=== PATIENT | male | born 1985 | race Caucasian/White ===

== ENCOUNTER 2016-05-01 20:05 | Emergency (ER) | payer OTHER ==
[~2016-05-01] VITALS: Ht 172.7 cm; Wt 91.0 kg
[~2016-05-01 20:05] MED LIST: BAC30OI TOP; BACTDS PO; CEPH-443 PO; IBUP200C11 PO; NAPR-260 PO
[2016-05-01 20:33] VITALS: Ht 172.7 cm; Wt 91.0 kg
[2016-05-01] MEDS ORDERED: IBUPROFEN 600 MG TAB PO ONE (22:30)
[2016-05-01] MEDS ORDERED: LIDOCAINE 1% (MDV) 20 ML INJ SC ONE (22:30)
--- NOTE | 2016-05-01 22:34 | ERD ---
ER Documentation Chief Complaint Date/Time DATE: 05/01/16 TIME: 22:32 Chief Complaint abscess since Friday HPI 30-year-old male presents in emergency department for complaints of redness and swelling in the neck area started 5 days ago. Patient described the pain as sharp pain, 8/10 scale, is worse upon touching the area, patient denies any open wound, patient denies any discharge coming from the area. Patient has a history of abscess in the same area before. Patient states that it feels the same way. ROS All systems reviewed and are negative except as per history of present illness. Medications Home Meds Active Scripts Ibuprofen* (Motrin*) 600 Mg Tab, 600 MG PO Q6H Y for PAIN AND OR ELEVATED TEMP, #30 TAB Prov:BIN CHAKRABORTY DISTRIBUTION TECH 05/01/16 Cephalexin* (Keflex*) 500 Mg Capsule, 500 MG PO QID for 10 Days, CAP Prov:BIN CHAKRABORTY DISTRIBUTION TECH 05/01/16 Sulfamethoxazole-Trimethoprim* (Bactrim* DS) 800-160 Mg Tab, 1 TAB PO BID for 10 Days, TAB Prov:BIN CHAKRABORTY DISTRIBUTION TECH 05/01/16 Hydrocodone/Acetaminophen ([place] 5-325 Tablet) 1 Each Tablet, 1 TAB PO Q6H, #20 TAB Prov:BIN CHAKRABORTY DISTRIBUTION TECH 05/01/16 Naproxen* (Naprosyn*) 500 Mg Tablet, 500 MG PO BID Y for PAIN AND/OR INFLAMMATION, #20 TAB Prov:Dasha Juarez PA-C 01/24/16 Bacitracin* (Bacitracin Zinc Oint*) 28.35 Gm Oint, 1 APPLIC TOP BID, #1 TUB APPLI TO Prov:Dasha Juarez-C 01/24/16 Sulfamethoxazole-Trimethoprim* (Bactrim* DS) 800-160 Mg Tab, 1 TAB PO BID for 5 Days, TAB Prov:Dasha JuarezC 01/24/16 Cephalexin* (Keflex*) 500 Mg Capsule, 500 MG PO QID for 5 Days, CAP Prov:Dasha Juarez-C 01/24/16 Reported Medications Ibuprofen* (Advil*) 200 Mg Capsule, 200 MG PO Y for HEADACHE, CAP 07/08/13 Allergies Allergies: Coded Allergies: No Known Allergy (Unverified , 07/08/13) PMhx/Soc Medical and Surgical Hx: pt denies Medical Hx, pt denies Surgical Hx History of Surgery: No Anesthesia Reaction: No Hx Neurological Disorder: No Hx Respiratory Disorders: No Hx Cardiac Disorders: No Hx Psychiatric Problems: No Hx Miscellaneous Medical Probl: No Hx Alcohol Use: No Hx Substance Use: No Hx Tobacco Use: Yes Smoking Status: Never smoker FmHx Family History: No coronary disease, No diabetes, No other Physical Exam Vitals Vital Signs Date Time Temp Pulse Resp B/P Pulse Ox O2 Delivery O2 Flow Rate FiO2 05/02/16 00:02 98.6 71 18 126/78 99 Room Air 05/01/16 20:33 100.3 105 18 150/82 99 Physical Exam GENERAL: The patient is well developed and appropriate for usual state of health, in no apparent distress. CHEST: Clear to auscultation bilaterally. There are no rales, wheezes or rhonchi. HEART: Regular rate and rhythm. No murmurs, clicks, rubs or gallops. No S3 or S4. ABDOMEN: Soft, nontender and nondistended. Good bowel sounds. No rebound or guarding. No gross peritonitis. No gross organomegaly or masses. No Pacheco sign or McBurney point tenderness. BACK: No midline or flank tenderness. EXTREMITIES: Equal pulses bilaterally. There is no peripheral clubbing, cyanosis or edema. No focal swelling or erythema. Full range of motion. Grossly neurovascularly intact. NEURO: Alert and oriented. Cranial nerves 2-12 intact. Motor strength in all 4 extremities with 5/5 strength. Sensation grossly intact. Normal speech and gait. SKIN: Noted 3 cm diameter erythematous fluctuant area and the neck area, tender on palpation, erythematous. warm to touch. There is no apparent ecchymosis or petechia. HEMATOLOGIC AND LYMPHATIC: There is no evidence of excessive bruising or lymphedema. No gross cervical, axillary, or inguinal lymphadenopathy. Results 24 hrs Current Medications Medications (Trade) Dose Ordered Sig/Zhane Route PRN Reason Start Time Stop Time Status Last Admin Dose Admin Ibuprofen (Motrin) 600 mg ONCE ONCE PO 05/01/16 22:30 05/01/16 22:31 DC 05/01/16 22:42 Lidocaine (Xylocaine 1% (Mdv) 20 ml) 3 ml ONCE ONCE SC 05/01/16 22:30 05/01/16 22:31 DC Patient was given medication for pain here in emergency department, after treatment, patient verbalized feeling much better. Patient's pain is improved. Procedures/MDM Procedure Note: After obtaining informed consent, the wound was irrigated with 250 ml of normal saline and cleaned with diluted betadine. Using aseptic technique, 3 ml of 1% lidocaine was injected on the subcutaneous tissue of the abscess where the fluctuant area is at. After the anesthetic, a 2 cm incision was done in the middle of the fluctuant area of the abscess. Pustular discharge was drained from the abscess. The abscess wound was loosely packed with iodoform dressing. After the procedure, dry dressing was applied on the area. Patient tolerated procedure well. Medical decision making: Patient's symptoms most likely consistent with a soft tissue abscess, incision and drainage was done, patient tolerated procedure well. No symptoms of any neurovascular compromise. No symptoms of sepsis at this time, patient has fever but is controlled at this time. Patient appears well and is hemodynamically stable. No symptoms of any neurovascular compromise. No symptoms of any joint involvement, osteomyelitis. Prescription was given for clindamycin, is advised to take medications as prescribed, recheck in 3 days, and dressing change. Patient is advised to return to emergency department for any worsening symptoms. Prescription was given for Bactrim Keflex ibuprofen and [place]. Departure Diagnosis: Primary Impression: Soft tissue abscess Condition: Stable Patient Instructions: Abscess, Incision And Drainage BIN CHAKRABORTY NP May 01, 2016 22:34
[2016-05-01] MEDS ORDERED: CEPH-443 PO (23:23)
[2016-05-01] MEDS ORDERED: HYDR-906 PO (23:23)
[2016-05-01] MEDS ORDERED: IBUP-1542 PO (23:23)
[2016-05-01] MEDS ORDERED: BACTDS PO (23:23)
[2016-05-02 00:02] VITALS: BP 126/78; PULSE 71; RESP 18; TEMP 98.6
== END 2016-05-02 00:26 | disposition home or self-care (01) ==
LOC: FTE 20:05
DX: L02.11 Cutaneous abscess of neck (principal); Z87.891 Personal history of nicotine dependence
CPT/HCPCS: 10061; Z7502; Z7610

== ENCOUNTER 2016-11-14 11:22 | Emergency (ER) | payer OTHER ==
[~2016-11-14] VITALS: Ht 165.1 cm; Wt 74.0 kg
[~2016-11-14 11:22] MED LIST changes: -BAC30OI TOP; +BACI28.34 TOP; +HYDR-906 PO; +IBUP-1542 PO
[2016-11-14 11:55] VITALS: Ht 165.1 cm; Wt 74.0 kg
[2016-11-14] MEDS ORDERED: LIDOCAINE 1% (MDV) 20 ML INJ SC ONE (12:30)
[2016-11-14] MEDS ORDERED: IBUPROFEN 600 MG TAB PO ONE (12:30)
[2016-11-14] MEDS ORDERED: DOXY100T20 PO (12:43)
--- NOTE | 2016-11-14 13:33 | ERD ---
ER Documentation Chief Complaint Date/Time DATE: 11/14/16 TIME: 13:29 Chief Complaint abscess on neck HPI This patient is a 31-year-old male with past medical history of folliculitis and abscesses on his neck presenting to the emergency department with complaints of an abscess to the posterior neck which has been present for the past 2 days. He reports pain which is constant, worse with movement, sharp in nature. He has had similar symptoms in the past and an abscess in the same area which required incision and drainage. The patient denies history of IV drug use. He denies discharge, fevers, or other symptoms at this time. ROS All systems reviewed and are negative except as per history of present illness. Medications Home Meds Active Scripts Doxycycline Hyclate* (Doxycycline Hyclate*) 100 Mg Tablet.dr, 100 MG PO BID for 10 Days, #20 TAB Prov:NATALY WOLF PA-C 11/14/16 Ibuprofen* (Motrin*) 600 Mg Tab, 600 MG PO Q6H Y for PAIN AND OR ELEVATED TEMP, #30 TAB Prov:BIN CHAKRABORTY NP 05/01/16 Cephalexin* (Keflex*) 500 Mg Capsule, 500 MG PO QID for 10 Days, CAP Prov:BIN CHAKRABORTY NP 05/01/16 Sulfamethoxazole-Trimethoprim* (Bactrim* DS) 800-160 Mg Tab, 1 TAB PO BID for 10 Days, TAB Prov:BIN CHAKRABORTY NP 05/01/16 Hydrocodone/Acetaminophen ([place] 5-325 Tablet) 1 Each Tablet, 1 TAB PO Q6H, #20 TAB Prov:BIN CHAKRABORTY NP 05/01/16 Naproxen* (Naprosyn*) 500 Mg Tablet, 500 MG PO BID Y for PAIN AND/OR INFLAMMATION, #20 TAB Prov:Dasha Juarez PA-C 01/24/16 Bacitracin* (Bacitracin Zinc Oint*) 28.35 Gm Oint, 1 APPLIC TOP BID, #1 TUB APPLI TO Prov:Dasha Juarez PA-C 01/24/16 Sulfamethoxazole-Trimethoprim* (Bactrim* DS) 800-160 Mg Tab, 1 TAB PO BID for 5 Days, TAB Prov:Dasha Juarez PA-C 01/24/16 Cephalexin* (Keflex*) 500 Mg Capsule, 500 MG PO QID for 5 Days, CAP Prov:LarryDasha PEREA 01/24/16 Reported Medications Ibuprofen* (Advil*) 200 Mg Capsule, 200 MG PO Y for HEADACHE, CAP 07/08/13 Allergies Allergies: Coded Allergies: No Known Allergy (Unverified , 07/08/13) PMhx/Soc Medical and Surgical Hx: pt denies Medical Hx, pt denies Surgical Hx History of Surgery: No Anesthesia Reaction: No Hx Neurological Disorder: No Hx Respiratory Disorders: No Hx Cardiac Disorders: No Hx Psychiatric Problems: No Hx Miscellaneous Medical Probl: No Hx Alcohol Use: No Hx Substance Use: No Hx Tobacco Use: Yes Smoking Status: Current every day smoker Physical Exam Vitals Vital Signs Date Time Temp Pulse Resp B/P Pulse Ox O2 Delivery O2 Flow Rate FiO2 11/14/16 11:55 98.7 95 20 129/59 100 Physical Exam Const: Nontoxic, well-appearing male in no acute distress. Head: Atraumatic Eyes: Normal Conjunctiva ENT: Normal External Ears, Nose and Mouth. Neck: Full range of motion..~ No meningismus.There is an approximate 2 cm x 2 cm fluctuant abscess noted with a central pustule to the posterior left lateral neck. No significant surrounding erythema or other signs of significant cellulitis were noted. Skin: There is an approximate 2 cm x 2 cm fluctuant abscess noted with a central pustule to the posterior left lateral neck. No significant surrounding erythema or other signs of significant cellulitis were noted. Back: No midline or flank tenderness Ext: No cyanosis, or edema Neur: Awake and alert Psych: Normal Mood and Affect Results 24 hrs Current Medications Medications (Trade) Dose Ordered Sig/Zhane Route PRN Reason Start Time Stop Time Status Last Admin Dose Admin Lidocaine (Xylocaine 1% (Mdv) 20 ml) 20 ml ONCE ONCE SC 11/14/16 12:30 11/14/16 12:31 DC Ibuprofen (Motrin) 600 mg ONCE ONCE PO 11/14/16 12:30 11/14/16 12:31 DC 11/14/16 12:12 Procedures/MDM 31-year-old male presents to the emergency department with complaints of abscess to the back of the neck. Abscess was incised and drained after verbal consent was obtained. The patient tolerated the procedure well. It was left open to drain. He is to return in 48 hours for wound recheck. He was given prescription for doxycycline and was advised to follow-up with his primary care physician and dermatology if symptoms do not improve. Strict ER return precautions were discussed. Abscess Incision and Drainage with irrigation by me: Location: Posterior left lateral neck Anesthesia: Local 1% Lidocaine Technique: Irrigated. Disrupted loculations w/ instrumentation Packing: None Complications: Neurovascularly intact post procedure 48 hour wound check. Scar minimization instructions given. Patient's skin symptoms have stabilized while they have been evaluated in the department and are appropriate for outpatient care and work up. Exam and w/u not consistent w/ sepsis, deep space infection, or foreign body. Departure Diagnosis: Primary Impression: Abscess Additional Impression: Folliculitis Condition: Fair Patient Instructions: Abscess, Incision And Drainage Referrals: [facility] YOU HAVE RECEIVED A MEDICAL SCREENING EXAM AND THE RESULTS INDICATE THAT YOU DO NOT HAVE A CONDITION THAT REQUIRES URGENT TREATMENT IN THE EMERGENCY DEPARTMENT. FURTHER EVALUATION AND TREATMENT OF YOUR CONDITION CAN WAIT UNTIL YOU ARE SEEN IN YOUR DOCTORS OFFICE WITHIN THE NEXT 1-2 DAYS. IT IS YOUR RESPONSIBILITY TO MAKE AN APPOINTMENT FOR FOL-UP CARE. IF YOU HAVE A PRIMARY DOCTOR --you should call your primary doctor and schedule an appointment IF YOU DO NOT HAVE A PRIMARY DOCTOR YOU CAN CALL OUR PHYSICIAN REFERRAL HOTLINE AT IF YOU CAN NOT AFFORD TO SEE A PHYSICIAN YOU CAN CHOSE FROM THE FOLLOWING [facility] [address]. [facility] [address] [facility] [facility] [address] [facility] [facility] [facility] [address] [facility] [facility] [address] [facility]. [facility]. [address] Additional Instructions: Follow up with your PCP within the next 1-3 days for a repeat evaluation. If you require a referral to a specialist, your Primary Care Provider may be able to provide this for you. In most patient cases, a referral is not required. If you have further questions regarding this matter, please ask your Primary Care Provider. Return the the emergency department immediately if symptoms worsen or change. If you have any questions regarding medications, ask your pharmacist or us before you leave. If any adverse reactions, occur while taking your medications, discontinue the treatment and return to the emergency department immediately. If any new or worsening symptoms, uncontrolled fevers, or other unexplained symptoms occur, return to the emergency department immediately. Take your medications as directed, and complete the entire course of treatment. NATALY WOLF PA-C Nov 14, 2016 13:33
== END 2016-11-14 13:05 | disposition home or self-care (01) ==
LOC: FTE 11:22
DX: L02.11 Cutaneous abscess of neck (principal); L73.9 Follicular disorder, unspecified; F17.210 Nicotine dependence, cigarettes, uncomplicated
CPT/HCPCS: 10060; Z7502; Z7610

== ENCOUNTER 2017-02-11 16:45 | Emergency (ER) | payer OTHER ==
[~2017-02-11] VITALS: Ht 172.7 cm; Wt 96.0 kg
[~2017-02-11 16:45] MED LIST changes: +DOXY100T20 PO
[2017-02-11 16:50] VITALS: Ht 172.7 cm; Wt 96.0 kg
[2017-02-11] MEDS ORDERED: LIDOCAINE 1% (MDV) 20 ML INJ SC ONE (18:30)
[2017-02-11] MEDS ORDERED: MUPI22OI2 NASAL (19:11)
[2017-02-11] MEDS ORDERED: SULF1TAB31 PO (19:11)
[2017-02-11] MEDS ORDERED: CEPH-443 PO (19:11)
[2017-02-11 19:18] VITALS: BP 145/73; PULSE 64; RESP 18; TEMP 98.3
--- NOTE | 2017-02-11 19:23 | ERD ---
ER Documentation Chief Complaint Chief Complaint abcess on neck x 3 days HPI 31-year-old male with history of recurrent cellulitis and abscess on his neck return to ED for another episode. Patient stated that this was not started about 3 days ago, with increasing pain. Denies fever or chills. Denies injury. Denies drainage. ROS All systems reviewed and are negative except as per history of present illness. Medications Home Meds Active Scripts Mupirocin* (Bactroban*) 2% -22 Gram Oint...g., 1 APPLIC NASAL BID for 14 Days, EA Prov:MATT LOW NP 02/11/17 Cephalexin* (Keflex*) 500 Mg Capsule, 500 MG PO QID for 7 Days, CAP Prov:MATT LOW NP 02/11/17 Sulfamethoxazole/Trimethoprim* (Bactrim Ds* Tablet) 1 Each Tablet, 1 TAB PO BID for 7 Days, TAB Prov:MATT LOW NP 02/11/17 Doxycycline Hyclate* (Doxycycline Hyclate*) 100 Mg Tablet.dr, 100 MG PO BID for 10 Days, #20 TAB Prov:NATALY WOLFC 11/14/16 Ibuprofen* (Motrin*) 600 Mg Tab, 600 MG PO Q6H Y for PAIN AND OR ELEVATED TEMP, #30 TAB Prov:BIN CHAKRABORTY NP 05/01/16 Cephalexin* (Keflex*) 500 Mg Capsule, 500 MG PO QID for 10 Days, CAP Prov:BIN CHAKRABORTY NP 05/01/16 Sulfamethoxazole-Trimethoprim* (Bactrim* DS) 800-160 Mg Tab, 1 TAB PO BID for 10 Days, TAB Prov:BIN CHAKRABORTY NP 05/01/16 Hydrocodone/Acetaminophen ([place] 5-325 Tablet) 1 Each Tablet, 1 TAB PO Q6H, #20 TAB Prov:BIN CHAKRABORTY NP 05/01/16 Naproxen* (Naprosyn*) 500 Mg Tablet, 500 MG PO BID Y for PAIN AND/OR INFLAMMATION, #20 TAB Prov:Dasha JuarezC 01/24/16 Bacitracin* (Bacitracin Zinc Oint*) 28.35 Gm Oint, 1 APPLIC TOP BID, #1 TUB APPLI TO Prov:Dasha Juarez CHANDANCarolGalo 01/24/16 Sulfamethoxazole-Trimethoprim* (Bactrim* DS) 800-160 Mg Tab, 1 TAB PO BID for 5 Days, TAB Prov:Dasha Juarez CHANDANCarolGalo 01/24/16 Cephalexin* (Keflex*) 500 Mg Capsule, 500 MG PO QID for 5 Days, CAP Prov:Dasha Juarez CHANDANCarolGalo 01/24/16 Reported Medications Ibuprofen* (Advil*) 200 Mg Capsule, 200 MG PO Y for HEADACHE, CAP 07/08/13 Allergies Allergies: Coded Allergies: No Known Allergy (Unverified , 02/11/17) PMhx/Soc Medical and Surgical Hx: pt denies Medical Hx, pt denies Surgical Hx History of Surgery: No Anesthesia Reaction: No Hx Neurological Disorder: No Hx Respiratory Disorders: No Hx Cardiac Disorders: No Hx Psychiatric Problems: No Hx Miscellaneous Medical Probl: No Hx Alcohol Use: No Hx Substance Use: No Hx Tobacco Use: Yes Smoking Status: Current every day smoker Physical Exam Vitals Vital Signs Date Time Temp Pulse Resp B/P Pulse Ox O2 Delivery O2 Flow Rate FiO2 02/11/17 19:18 98.3 64 18 145/73 99 Room Air 02/11/17 16:50 98.9 72 18 147/84 100 Physical Exam General: Well-developed, well-nourished, conscious and coherent, in no distress Skin: Warm and dry without rash, good texture and turgor. A 2 cm x 3 cm fluctuant areas noted on the left posterior neck, with surrounding erythema and induration. Head: Normocephalic without evidence of trauma Eyes: Sclera and conjunctivae normal; pupils equal, round, and reactive to light; extraocular movements are intact Neck: Supple without meningismus or adenopathy. Carotids are equal. Trachea midline. No bruits or JVD Chest: Normal AP diameter. Good expansion without retractions. Nontender. Lungs are clear to auscultate bilaterally with good tidal volume Heart: Regular rate and rhythm. No murmur, rub, or gallops heard Extremities: Full range of motion. Good strength bilaterally. No clubbing, cyanosis, or edema. Peripheral pulses are intact. Sensation intact Neuro: Alert and oriented 4, GCS 15. Cranial nerves grossly intact. Motor and sensory exams nonfocal. Moves all extremities. Speech clear. Gait normal Results 24 hrs Current Medications Medications (Trade) Dose Ordered Sig/Zhane Route PRN Reason Start Time Stop Time Status Last Admin Dose Admin Lidocaine (Xylocaine 1% (Mdv) 20 ml) 20 ml ONCE ONCE SC 02/11/17 18:30 02/11/17 18:31 DC Procedures/MDM Procedure note: Incision and Drainage Verbal consent obtained for incision and drainage of patient's abscess. The area was prepped with Betadine. Lidocaine 1% was infiltrated for local anesthesia. After appropriate anesthesia, incision was made using #11 blade. Copious amount of purulent discharge was drained from the abscess. The abscess was probed for loculation. Patient requests not to place the packing as he is going out of town for several days and unable to follow up. The wound was then cleaned and dressed. Patient tolerated procedure well. Well-appearing 31-year-old male present ED with recurrent cellulitis abscess on his neck. Given the recurrent nature of his abscess, I suspect he may have been colonized. Bactroban ointment is prescribed for the patient to eradicate the colonization. Patient also given Bactrim DS and Keflex for the underlying cellulitis. Patient appears well, stable for discharge and outpatient management. Medical decision making shared with patient and family. Education provided to patient and family. Patient and family expressed understanding of the plan. Medications on discharge: Bactrim DS, Keflex, Bactroban. Follow-up: Return to ED or to clinic in 2 days for wound check. Disclaimer: Inadvertent spelling and grammatical errors are likely due to EHR/ dictation software use and do not reflect on the overall quality of patient care. Also, please note that the electronic time recorded on this note does not necessarily reflect the actual time of the patient encounter. Departure Diagnosis: Primary Impression: Abscess Condition: Stable Patient Instructions: Abscess, Incision And Drainage Referrals: [facility] YOU HAVE RECEIVED A MEDICAL SCREENING EXAM AND THE RESULTS INDICATE THAT YOU DO NOT HAVE A CONDITION THAT REQUIRES URGENT TREATMENT IN THE EMERGENCY DEPARTMENT. FURTHER EVALUATION AND TREATMENT OF YOUR CONDITION CAN WAIT UNTIL YOU ARE SEEN IN YOUR DOCTORS OFFICE WITHIN THE NEXT 1-2 DAYS. IT IS YOUR RESPONSIBILITY TO MAKE AN APPOINTMENT FOR FOLOW-UP CARE. IF YOU HAVE A PRIMARY DOCTOR --you should call your primary doctor and schedule an appointment IF YOU DO NOT HAVE A PRIMARY DOCTOR YOU CAN CALL OUR PHYSICIAN REFERRAL HOTLINE AT IF YOU CAN NOT AFFORD TO SEE A PHYSICIAN YOU CAN CHOSE FROM THE FOLLOWING [facility] [address] [facility]. [facility] [address] [facility] [address] [facility] [address] [facility]. [facility] [address] [facility]. [facility] [address] Additional Instructions: Return to this facility in 2 DAYS for a follow-up exam.Return sooner if your condition worsens. MATT LOW NP Feb 11, 2017 19:23
== END 2017-02-11 19:18 | disposition home or self-care (01) ==
LOC: FTE 16:45
DX: L02.11 Cutaneous abscess of neck (principal); F17.210 Nicotine dependence, cigarettes, uncomplicated
CPT/HCPCS: 10060; Z7502; Z7610